=== PATIENT | female | born 1985 | race Hispanic/Latino ===

== ENCOUNTER 2018-06-10 08:47 | Inpatient (IN) | payer MEDICARE, MEDICAID ==
[2018-06-10] MEDS ORDERED: ADRENALIN ONE (09:06)
[2018-06-10] MEDS ORDERED: CALCIUM CHLORIDE IV ONE (09:06)
[2018-06-10 09:51] LABS: Mean Corpuscular HGB Conc 31 % (30-34); Mean Corpuscular Volume 100 fl (79-97); Platelet Count 226 K/mm3 (140-440); Red Blood Count 4.41 M/mm3 (3.65-5.03); Red Cell Distribution Width 19.9 % (13.2-15.2)
[2018-06-10 09:57] LABS: Hemoglobin 13.5 gm/dl (10.1-14.3)
[2018-06-10 10:04] LABS: Alanine Aminotransferase 26 units/L (7-56); Albumin 3.1 g/dL (3.9-5); BUN/Creatinine Ratio 18; Blood Urea Nitrogen 39 mg/dL (7-17); Hemolysis Index 47
[2018-06-10] MEDS ORDERED: NACL 0.9% 1000 ML 1,000 ML IV ONE ×3 (10:04→17:10)
[2018-06-10 10:06] LABS: Calcium 12.4 mg/dL (8.4-10.2)
[2018-06-10 10:08] LABS: INR 2.2 (0.87-1.13)
--- NOTE | 2018-06-10 10:09 | XRay Report ---
AP CHEST: HISTORY: Endotracheal tube placement No comparison. The endotracheal tube terminates 3.6 cm superior to the joaquina. A nasogastric tube is followed to the proximal stomach. Severe cardiomegaly and pulmonary edema is identified. Small pleural effusions are suspected. No pneumothorax. IMPRESSION: Adequate placement of the endotracheal tube. Moderate to severe CHF is suspected.
[2018-06-10] MEDS ORDERED: NACL 0.9% 1000 ML IV ONE (10:11)
[2018-06-10] MEDS ORDERED: VANCOMYCIN 1,000 MG in NACL 0.9% 500 ML 500 ML IV ONE (10:11)
[2018-06-10] MEDS ORDERED: LASIX IV ONE (10:17)
[2018-06-10 10:29] LABS: Basophils % (Manual) 0 % (0.0-1.8); Eosinophils % (Manual) 0 % (0.0-4.3); Total Cells Counted 100
[2018-06-10 10:30] LABS: Anisocytosis 1+; Platelet Estimate Consistent w Auto
--- NOTE | 2018-06-10 10:51 | Cat Scan Report ---
CT HEAD WITHOUT CONTRAST: HISTORY: Altered mental status. TECHNIQUE: Sequential 2.5mm CT images. COMPARISON: none. FINDINGS: Cerebral Parenchyma: There appears to be mild diffuse sulcal effacement throughout the cerebral hemispheres. The basal cisterns appear to be compressed and poorly defined. The sanchez-white interface is identified but appears mildly blurred. These findings could be related to diffuse cerebral edema. This may represent a diffuse anoxic injury. Cerebellum: Within normal limits. Brainstem: Within normal limits. Ventricles: Normal. Sella: Normal. Extra-axial spaces: Normal. Basal Cisterns: Compressed. Intracranial Hemorrhage: None. Midline Shift: None. Calvarium: Normal. Sinuses: Normal. Mastoid Air Cells: Normal. Visualized Orbits: Normal. IMPRESSION: Findings concerning for diffuse anoxic injury. Please correlate with the clinical presentation of the patient and consider further imaging with MRI.
--- NOTE | 2018-06-10 10:53 | Cat Scan Report ---
CT CHEST WITHOUT CONTRAST: HISTORY: Cardiac arrest. COMPARISON: none. TECHNIQUE: Helical CT in 1.25mm intervals without IV contrast. Sagittal and coronal reformatted images. FINDINGS: Thyroid gland: Normal. Tracheobronchial tree: Within normal limits. An endotracheal tube is in position. Esophagus: Within normal limits. A nasogastric tube is in position. Heart: There is severe cardiomegaly. Pericardium: Normal. Mediastinum: Normal. Lung Freitas: There are large areas of consolidation throughout the left upper lobe and bilateral lower lobes. It is unclear if this represents atelectasis or infiltrate. No obvious lung mass. Pleural Spaces: Small left pleural effusion. No pneumothorax. Musculoskeletal: Normal. IMPRESSION: Severe cardiomegaly. Large areas of consolidation throughout both lungs concerning for pneumonia, aspiration or possibly atelectasis. Small left pleural effusion.
[2018-06-10] MEDS ORDERED: VANCOMYCIN 2,000 MG in NACL 0.9% 500 ML 500 ML IV ONE (11:00)
[2018-06-10] MEDS ORDERED: MAXIPIME/NS 2 GM/100 ML 2 GM/100 ML BAG IV SCH ×2 (11:00→20:00)
[2018-06-10] MEDS ORDERED: MAXIPIME/NS 2 GM/100 ML 2 GM/100 ML BAG IV ONE (11:35)
--- NOTE | 2018-06-10 11:42 | Emergency Department Report ---
ED General Adult HPI - General Chief complaint: Cardiac Arrest/CPR Stated complaint: CARDIAC ARREST Time Seen by Provider: 06/10/18 09:21 Source: family, EMS Mode of arrival: Stretcher Limitations: Other - History of Present Illness Initial comments: Patient presents to the emergency department via EMS for cardiac arrest. Per EMS upon arrival the patient was in asystole and was given multiple rounds of epinephrine and chest compressions when V. tach was appreciated on the monitor and a shock was requested. The patient was shocked at 200 J and given 150 mg amiodarone and arrives to the ED with a pulse. Per the patient's mother the patient has been ill for the last 2 days and there are multiple sick contacts in the home with influenza. Mom states the patient has a pneumonia and influenza shots. The patient does have a history of Down syndrome and had to open-heart surgeries at 3 or 4 years old for correction of a VSD and a valve. Mom states that she was getting ready to bring the patient to the hospital because she was not feeling well when she noticed that she was not responding and turning blue. -: Sudden Severity scale (0 -10): 0 Improves with: none Worsens with: none Associated Symptoms: denies other symptoms Treatments Prior to Arrival: none - Related Data Home Medications Medication Instructions Recorded Confirmed Last Taken Furosemide 40 mg PO DAILY 06/10/18 06/10/18 Unknown Potassium Chloride 10 meq PO DAILY 06/10/18 06/10/18 Unknown Sildenafil 20 mg PO TID 06/10/18 06/10/18 Unknown Allergies Allergy/AdvReac Type Severity Reaction Status Date / Time No Known Allergies Allergy Unverified 06/10/18 08:58 ED Review of Systems ROS: Stated complaint: CARDIAC ARREST Other details as noted in HPI Comment: Unobtainable due to pts medical conditions ED Past Medical Hx - Past Medical History Previous Medical History?: Yes Additional medical history: Pulmonary hypertension, Down Syndrome - Surgical History Additional Surgical History: Unknown - Social History Smoking Status: Unknown if ever smoked - Medications Home Medications: Home Medications Medication Instructions Recorded Confirmed Last Taken Type Furosemide 40 mg PO DAILY 06/10/18 06/10/18 Unknown History Potassium Chloride 10 meq PO DAILY 06/10/18 06/10/18 Unknown History Sildenafil 20 mg PO TID 06/10/18 06/10/18 Unknown History ED Physical Exam - General Limitations: Other (patient intubated) General appearance: obtunded - Head Head exam: Present: atraumatic, normocephalic - Eye Eye exam: Present: normal appearance, PERRL. Absent: scleral icterus - ENT ENT exam: Present: mucous membranes dry - Neck Neck exam: Present: normal inspection - Respiratory Respiratory exam: Present: rales. Absent: wheezes - Cardiovascular Cardiovascular Exam: Present: normal rhythm, tachycardia - GI/Abdominal GI/Abdominal exam: Present: soft. Absent: distended - Extremities Exam Extremities exam: Present: pedal edema - Neurological Exam Neurological exam: Present: other (GCS of 3) - Psychiatric Psychiatric exam: Present: other (not able to assess due to the patient's condition) - Skin Skin exam: Present: dry, intact, normal color. Absent: rash ED Course Vital Signs 06/10/18 06/10/18 06/10/18 08:50 09:17 09:36 Temperature 97 F L Pulse Rate 70 97 H Respiratory 20 20 Rate Blood Pressure Blood Pressure 151/58 [Left] O2 Sat by Pulse 96 98 Oximetry 06/10/18 06/10/18 06/10/18 10:08 10:47 11:00 Temperature Pulse Rate 116 H 121 H 123 H Respiratory 20 20 20 Rate Blood Pressure Blood Pressure 91/44 88/49 86/50 [Left] O2 Sat by Pulse 95 94 94 Oximetry 06/10/18 06/10/18 06/10/18 11:18 12:00 12:45 Temperature Pulse Rate 125 H 127 H 129 H Respiratory 20 20 Rate Blood Pressure 97/44 Blood Pressure 98/50 56/22 [Left] O2 Sat by Pulse 90 95 94 Oximetry - Central Line Placement Right IJ Consent Obtained: emergent situation Time Out Performed: Yes Patient Placed on Monitor/Pulse Ox: Yes Prep: mask, gown, gloves Central Line Prep: Chlorhexidine scrub Local Anesthesia Used: Lidocaine 1% Amount of Anesthesia Used (mls): 5 Ultrasound Used for Placement: Yes Central Line Lumen Inserted: triple Central Line Position: good blood return, all ports aspirated, flus, sutured in place with 2-0 Dressing Applied: Tegaderm Post Procedure X-Ray: tip of catheter in good p Patient Tolerated Procedure: well Complications: none - Intubation Time Out Performed: No Laryngoscope: fiberoptic video scope Size: 3 ET Tube Size: 7.5 Tube Secured Depth (cm): 22 Tube Secured Location: lips Tube Placement Confirmation: visualized tube passing t, equal breath sounds bilat, no breath sounds over epi, confirmation by capnometr Patient Tolerated Procedure: well Intubation Complications: none ED Medical Decision Making - Lab Data Result diagrams: 06/10/18 09:15 06/10/18 09:15 Lab Results 06/10/18 06/10/18 06/10/18 Range/Units 08:58 09:15 09:15 WBC 45.0 H* (4.5-11.0) K/mm3 RBC 4.41 (3.65-5.03) M/mm3 Hgb 13.5 (10.1-14.3) gm/dl Hct 44.0 H (30.3-42.9) % MCV 100 H (79-97) fl MCH 31 (28-32) pg MCHC 31 (30-34) % RDW 19.9 H (13.2-15.2) % Plt Count 226 (140-440) K/mm3 Add Manual Diff Complete Total Counted 100 Seg Neutrophils % Knitted Cloth Examiner Seg Neuts % (Manual) 92.0 H (40.0-70.0) % Band Neutrophils % 0 % Lymphocytes % (Manual) 6.0 L (13.4-35.0) % Reactive Lymphs % (Man) 0 % Monocytes % (Manual) 2.0 (0.0-7.3) % Eosinophils % (Manual) 0 (0.0-4.3) % Basophils % (Manual) 0 (0.0-1.8) % Metamyelocytes % 0 % Myelocytes % 0 % Promyelocytes % 0 % Blast Cells % 0 % Nucleated RBC % Not Reportable Seg Neutrophils # Man 41.4 H (1.8-7.7) K/mm3 Band Neutrophils # 0.0 K/mm3 Lymphocytes # (Manual) 2.7 (1.2-5.4) K/mm3 Abs React Lymphs (Man) 0.0 K/mm3 Monocytes # (Manual) 0.9 H (0.0-0.8) K/mm3 Eosinophils # (Manual) 0.0 (0.0-0.4) K/mm3 Basophils # (Manual) 0.0 (0.0-0.1) K/mm3 Metamyelocytes # 0.0 K/mm3 Myelocytes # 0.0 K/mm3 Promyelocytes # 0.0 K/mm3 Blast Cells # 0.0 K/mm3 WBC Morphology Not Reportable Hypersegmented Neuts Not Reportable Hyposegmented Neuts Not Reportable Hypogranular Neuts Not Reportable Smudge Cells Not Reportable Toxic Granulation Not Reportable Toxic Vacuolation Not Reportable Dohle Bodies Not Reportable Pelger-Huet Anomaly Not Reportable Nisha Rods Not Reportable Platelet Estimate Consistent w auto Clumped Platelets Not Reportable Plt Clumps, EDTA Not Reportable Large Platelets Not Reportable Giant Platelets Not Reportable Platelet Satelliting Not Reportable Plt Morphology Comment Not Reportable RBC Morphology Not Reportable Dimorphic RBCs Not Reportable Polychromasia Not Reportable Hypochromasia Not Reportable Poikilocytosis Not Reportable Anisocytosis 1+ Microcytosis Not Reportable Macrocytosis Not Reportable Spherocytes Not Reportable Pappenheimer Bodies Not Reportable Sickle Cells Not Reportable Target Cells Not Reportable Tear Drop Cells Not Reportable Ovalocytes Not Reportable Helmet Cells Not Reportable Fox-Grayridge Bodies Not Reportable [place] Rings Not Reportable [place] Cells Not Reportable Bite Cells Not Reportable Crenated Cell Not Reportable Elliptocytes Not Reportable Acanthocytes (Spur) Not Reportable Rouleaux Not Reportable Hemoglobin C Crystals Not Reportable Schistocytes Not Reportable Malaria parasites Not Reportable Jaskaran Bodies Not Reportable Hem Pathologist Commnt No PT 25.9 H (12.2-14.9) Sec. INR 2.20 H (0.87-1.13) APTT 32.0 (24.2-36.6) Sec. POC ABG pH (7.35-7.45) POC ABG pCO2 (35-45) POC ABG pO2 (80-105) POC ABG HCO3 POC ABG Total CO2 POC ABG O2 Sat POC ABG Base Excess FiO2 % Sodium (137-145) mmol/L Potassium (3.6-5.0) mmol/L Chloride (98-107) mmol/L Carbon Dioxide (22-30) mmol/L Anion Gap mmol/L BUN (7-17) mg/dL Creatinine (0.7-1.2) mg/dL Estimated GFR ml/min BUN/Creatinine Ratio % Glucose (65-100) mg/dL POC Glucose 223 H (70-105) Lactic Acid (0.7-2.0) mmol/L Calcium (8.4-10.2) mg/dL Total Bilirubin (0.1-1.2) mg/dL AST (5-40) units/L ALT (7-56) units/L Alkaline Phosphatase (35-129) units/L Troponin T (0.00-0.029) ng/mL NT-Pro-B Natriuret Pep (0-450) pg/mL Total Protein (6.3-8.2) g/dL Albumin (3.9-5) g/dL Albumin/Globulin Ratio % Influenza A (Rapid) (Negative) Influenza B (Rapid) (Negative) 06/10/18 06/10/18 06/10/18 Range/Units 09:15 09:15 09:39 WBC (4.5-11.0) K/mm3 RBC (3.65-5.03) M/mm3 Hgb (10.1-14.3) gm/dl Hct (30.3-42.9) % MCV (79-97) fl MCH (28-32) pg MCHC (30-34) % RDW (13.2-15.2) % Plt Count (140-440) K/mm3 Add Manual Diff Total Counted Seg Neutrophils % Seg Neuts % (Manual) (40.0-70.0) % Band Neutrophils % % Lymphocytes % (Manual) (13.4-35.0) % Reactive Lymphs % (Man) % Monocytes % (Manual) (0.0-7.3) % Eosinophils % (Manual) (0.0-4.3) % Basophils % (Manual) (0.0-1.8) % Metamyelocytes % % Myelocytes % % Promyelocytes % % Blast Cells % % Nucleated RBC % Seg Neutrophils # Man (1.8-7.7) K/mm3 Band Neutrophils # K/mm3 Lymphocytes # (Manual) (1.2-5.4) K/mm3 Abs React Lymphs (Man) K/mm3 Monocytes # (Manual) (0.0-0.8) K/mm3 Eosinophils # (Manual) (0.0-0.4) K/mm3 Basophils # (Manual) (0.0-0.1) K/mm3 Metamyelocytes # K/mm3 Myelocytes # K/mm3 Promyelocytes # K/mm3 Blast Cells # K/mm3 WBC Morphology Hypersegmented Neuts Hyposegmented Neuts Hypogranular Neuts Smudge Cells Toxic Granulation Toxic Vacuolation Dohle Bodies Pelger-Huet Anomaly Nisha Rods Platelet Estimate Clumped Platelets Plt Clumps, EDTA Large Platelets Giant Platelets Platelet Satelliting Plt Morphology Comment RBC Morphology Dimorphic RBCs Polychromasia Hypochromasia Poikilocytosis Anisocytosis Microcytosis Macrocytosis Spherocytes Pappenheimer Bodies Sickle Cells Target Cells Tear Drop Cells Ovalocytes Helmet Cells Fox-Grayridge Bodies [place] Rings Walker Cells Bite Cells Crenated Cell Elliptocytes Acanthocytes (Spur) Rouleaux Hemoglobin C Crystals Schistocytes Malaria parasites Jaskaran Bodies Hem Pathologist Commnt PT (12.2-14.9) Sec. INR (0.87-1.13) APTT (24.2-36.6) Sec. POC ABG pH (7.35-7.45) POC ABG pCO2 (35-45) POC ABG pO2 (80-105) POC ABG HCO3 POC ABG Total CO2 POC ABG O2 Sat POC ABG Base Excess FiO2 % Sodium 138 (137-145) mmol/L Potassium 4.9 (3.6-5.0) mmol/L Chloride 93.5 L (98-107) mmol/L Carbon Dioxide 16 L (22-30) mmol/L Anion Gap 33 mmol/L BUN 39 H (7-17) mg/dL Creatinine 2.2 H (0.7-1.2) mg/dL Estimated GFR 26 ml/min BUN/Creatinine Ratio 18 % Glucose 215 H (65-100) mg/dL POC Glucose (70-105) Lactic Acid (0.7-2.0) mmol/L Calcium 12.4 H* (8.4-10.2) mg/dL Total Bilirubin 0.80 (0.1-1.2) mg/dL AST 46 H (5-40) units/L ALT 26 (7-56) units/L Alkaline Phosphatase 139 H (35-129) units/L Troponin T < 0.010 < 0.010 (0.00-0.029) ng/mL NT-Pro-B Natriuret Pep 42786 H (0-450) pg/mL Total Protein 7.2 (6.3-8.2) g/dL Albumin 3.1 L (3.9-5) g/dL Albumin/Globulin Ratio 0.8 % Influenza A (Rapid) Negative (Negative) Influenza B (Rapid) Negative (Negative) 06/10/18 06/10/18 Range/Units 09:54 10:16 WBC (4.5-11.0) K/mm3 RBC (3.65-5.03) M/mm3 Hgb (10.1-14.3) gm/dl Hct (30.3-42.9) % MCV (79-97) fl MCH (28-32) pg MCHC (30-34) % RDW (13.2-15.2) % Plt Count (140-440) K/mm3 Add Manual Diff Total Counted Seg Neutrophils % Seg Neuts % (Manual) (40.0-70.0) % Band Neutrophils % % Lymphocytes % (Manual) (13.4-35.0) % Reactive Lymphs % (Man) % Monocytes % (Manual) (0.0-7.3) % Eosinophils % (Manual) (0.0-4.3) % Basophils % (Manual) (0.0-1.8) % Metamyelocytes % % Myelocytes % % Promyelocytes % % Blast Cells % % Nucleated RBC % Seg Neutrophils # Man (1.8-7.7) K/mm3 Band Neutrophils # K/mm3 Lymphocytes # (Manual) (1.2-5.4) K/mm3 Abs React Lymphs (Man) K/mm3 Monocytes # (Manual) (0.0-0.8) K/mm3 Eosinophils # (Manual) (0.0-0.4) K/mm3 Basophils # (Manual) (0.0-0.1) K/mm3 Metamyelocytes # K/mm3 Myelocytes # K/mm3 Promyelocytes # K/mm3 Blast Cells # K/mm3 WBC Morphology Hypersegmented Neuts Hyposegmented Neuts Hypogranular Neuts Smudge Cells Toxic Granulation Toxic Vacuolation Dohle Bodies Pelger-Huet Anomaly Nisha Rods Platelet Estimate Clumped Platelets Plt Clumps, EDTA Large Platelets Giant Platelets Platelet Satelliting Plt Morphology Comment RBC Morphology Dimorphic RBCs Polychromasia Hypochromasia Poikilocytosis Anisocytosis Microcytosis Macrocytosis Spherocytes Pappenheimer Bodies Sickle Cells Target Cells Tear Drop Cells Ovalocytes Helmet Cells Fox-Grayridge Bodies [place] Rings Walker Cells Bite Cells Crenated Cell Elliptocytes Acanthocytes (Spur) Rouleaux Hemoglobin C Crystals Schistocytes Malaria parasites Jaskaran Bodies Hem Pathologist Commnt PT (12.2-14.9) Sec. INR (0.87-1.13) APTT (24.2-36.6) Sec. POC ABG pH 6.898 L (7.35-7.45) POC ABG pCO2 91.5 H (35-45) POC ABG pO2 90 (80-105) POC ABG HCO3 17.8 POC ABG Total CO2 21 POC ABG O2 Sat 87 POC ABG Base Excess -15 FiO2 100 % Sodium (137-145) mmol/L Potassium (3.6-5.0) mmol/L Chloride (98-107) mmol/L Carbon Dioxide (22-30) mmol/L Anion Gap mmol/L BUN (7-17) mg/dL Creatinine (0.7-1.2) mg/dL Estimated GFR ml/min BUN/Creatinine Ratio % Glucose (65-100) mg/dL POC Glucose (70-105) Lactic Acid 12.10 H* (0.7-2.0) mmol/L Calcium (8.4-10.2) mg/dL Total Bilirubin (0.1-1.2) mg/dL AST (5-40) units/L ALT (7-56) units/L Alkaline Phosphatase (35-129) units/L Troponin T (0.00-0.029) ng/mL NT-Pro-B Natriuret Pep (0-450) pg/mL Total Protein (6.3-8.2) g/dL Albumin (3.9-5) g/dL Albumin/Globulin Ratio % Influenza A (Rapid) (Negative) Influenza B (Rapid) (Negative) - Radiology Data Radiology results: report reviewed - Medical Decision Making Upon patient's arrival the patient has been intubated by EMS and has a pulse It was noticed that the patient's O2 sats were low with the ET tube done in the field and at this time it was decided to reintubate the patient The ET tubes balloon was deflated and there was significant amount of blood and fluid in the airway Vigorous suctioning was done and a Jairon was used for intubation During intubation the patient lost her pulse and ACLS protocols follow There was return of spontaneous circulation please see code sheet Patient was given bicarbonate and will doses of epinephrine Discussed and updated patient's condition with her mother and sister The patient became hypotensive even after IV fluids and central line was placed for pressors if needed IV pressors started Discussed with mom that the patient likely went into cardiac arrest secondary to respiratory issues Critical Care Time: Yes Critical care time in (mins) excluding proc time.: 45 Critical care attestation.: If time is entered above; I have spent that time in minutes in the direct care of this critically ill patient, excluding procedure time. ED Disposition Clinical Impression: Respiratory arrest, Sepsis, Pneumonia, Pulmonary edema, Renal failure Disposition: DC-[id number] OP ADMIT IP TO THIS HOSP Is pt being admited?: Yes Does the pt Need Aspirin: No Condition: Critical
[2018-06-10] MEDS ORDERED: PROVENTIL IH PRN (11:58)
[2018-06-10] MEDS ORDERED: SODIUM CHLORIDE FLUSH SYRINGE 10 ML IV PRN (11:58)
--- NOTE | 2018-06-10 11:58 | History and Physical Report ---
History of Present Illness Chief complaint: Unresponsive History of present illness: 32 YO Female with Down Syndrome, Pulmonary HTN, CAD, VSD S/P Repair, Obesity presents to ED for evaluation. Pt found unresponsive by her family today. EMS notified and upon arrival the patient was found to be in Asystolic Arrest. Pt treated IAW ACLS protocol for 8-10 minutes with eventual return of perfusing rhythm. Pt transported to [facility] for further care and evaluation. Pt seen and evaluated in ED and again experienced cardiac arrest. Pt treated IAW ACLS protocol with return of perfusing rhythm. Pt found to have Septic Shock, Acute Respiratory Failure, Acute Renal Failure, and Multiple Organ System Failure. Pt found to have poor prognosis. Pt condition discussed in detail with patient mother. Pt mother acknowledges understanding poor prognosis and requests aggressive therapy. Pt mother made aware that due to patient being in extremis- the patient may decompensate with/without aggressive therapy. Pt mother acknowledges understanding. Pt admitted to ICU and initiated on IV pressor support. Pt also initiated on sepsis protocol. Pulmonary team consulted in ED. Past History Past Medical History: CAD, other (Down Syndrome, Pulmonary HTN, Obesity) Past Surgical History: Other (VSD Repair) Social history: single, lives with family. denies: smoking, alcohol abuse, prescription drug abuse Family history: no significant family history (reviewed) Medications and Allergies Allergies Allergy/AdvReac Type Severity Reaction Status Date / Time No Known Allergies Allergy Unverified 06/10/18 08:58 Home Medications Medication Instructions Recorded Confirmed Last Taken Type Furosemide 40 mg PO DAILY 06/10/18 06/10/18 Unknown History Potassium Chloride 10 meq PO DAILY 06/10/18 06/10/18 Unknown History Sildenafil 20 mg PO TID 06/10/18 06/10/18 Unknown History Active Meds: Active Medications Cefepime HCl (Maxipime/Ns 2 Gm/100 Ml) 2 gm in 100 mls @ 200 mls/hr IV Q8HR [facility]; Protocol Last Admin: 06/10/18 11:36 Dose: 200 mls/hr Documented by: Vancomycin HCl 2,000 mg/ (Sodium Chloride) 540 mls @ 250 mls/hr IV ONCE ONE Stop: 06/10/18 13:09 Review of Systems ROS unobtainable: due to endotracheal tube Exam - Constitutional Vitals: Temp Pulse Resp BP Pulse Ox 97 F L 125 H 20 97/44 90 06/10/18 09:36 06/10/18 11:18 06/10/18 10:08 06/10/18 11:18 06/10/18 11:18 General appearance: Present: severe distress - EENT Eyes: Present: miosis - Neck Neck: Present: supple, normal ROM - Respiratory Respiratory effort: labored Respiratory: bilateral: diminished, rhonchi - Cardiovascular Rhythm: other (tachycardic, hypotensive) Heart Sounds: Present: S1 & S2. Absent: rub, click - Extremities Extremities: abnormal Extremity abnormal: edema Peripheral Pulses: abnormal (capillary refill greater than 3.5 seconds) - Abdominal General gastrointestinal: Present: soft, non-tender, non-distended, normal bowel sounds Female genitourinary: Present: normal - Integumentary Integumentary: Present: clear, dry, clammy - Musculoskeletal Musculoskeletal: generalized weakness - Psychiatric Psychiatric: no appropriate mood/affect, no intact judgment & insight, no memory intact - Neurologic Neurologic: moves all extremities, no gait normal Results - Labs CBC & Chem 7: 06/10/18 09:15 06/10/18 09:15 Labs: Abnormal lab results 06/10/18 06/10/18 06/10/18 Range/Units 08:58 09:15 09:15 WBC 45.0 H* (4.5-11.0) K/mm3 Hct 44.0 H (30.3-42.9) % MCV 100 H (79-97) fl RDW 19.9 H (13.2-15.2) % Seg Neuts % (Manual) 92.0 H (40.0-70.0) % Lymphocytes % (Manual) 6.0 L (13.4-35.0) % Seg Neutrophils # Man 41.4 H (1.8-7.7) K/mm3 Monocytes # (Manual) 0.9 H (0.0-0.8) K/mm3 PT 25.9 H (12.2-14.9) Sec. INR 2.20 H (0.87-1.13) POC ABG pH (7.35-7.45) POC ABG pCO2 (35-45) Chloride (98-107) mmol/L Carbon Dioxide (22-30) mmol/L BUN (7-17) mg/dL Creatinine (0.7-1.2) mg/dL Glucose (65-100) mg/dL POC Glucose 223 H (70-105) Lactic Acid (0.7-2.0) mmol/L Calcium (8.4-10.2) mg/dL AST (5-40) units/L Alkaline Phosphatase (35-129) units/L NT-Pro-B Natriuret Pep (0-450) pg/mL Albumin (3.9-5) g/dL 06/10/18 06/10/18 06/10/18 Range/Units 09:15 09:54 10:16 WBC (4.5-11.0) K/mm3 Hct (30.3-42.9) % MCV (79-97) fl RDW (13.2-15.2) % Seg Neuts % (Manual) (40.0-70.0) % Lymphocytes % (Manual) (13.4-35.0) % Seg Neutrophils # Man (1.8-7.7) K/mm3 Monocytes # (Manual) (0.0-0.8) K/mm3 PT (12.2-14.9) Sec. INR (0.87-1.13) POC ABG pH 6.898 L (7.35-7.45) POC ABG pCO2 91.5 H (35-45) Chloride 93.5 L (98-107) mmol/L Carbon Dioxide 16 L (22-30) mmol/L BUN 39 H (7-17) mg/dL Creatinine 2.2 H (0.7-1.2) mg/dL Glucose 215 H (65-100) mg/dL POC Glucose (70-105) Lactic Acid 12.10 H* (0.7-2.0) mmol/L Calcium 12.4 H* (8.4-10.2) mg/dL AST 46 H (5-40) units/L Alkaline Phosphatase 139 H (35-129) units/L NT-Pro-B Natriuret Pep 37570 H (0-450) pg/mL Albumin 3.1 L (3.9-5) g/dL Assessment and Plan - Patient Problems (1) Severe sepsis Current Visit: Yes Status: Acute Plan to address problem: Sepsis Protocol: IV antibiotic therapy, IVF resuscitation, serial lactic acid, monitor uop q shift, cbc, cmp, influenza swab, chest x ray, blood cultures. The high probability of a clinically significant, sudden or life threatening deterioration of the [Cardiac, pulmonary, renal, neuro] system(s) required my full and direct attention, intervention and personal management. The aggregate critical care time was [65] minutes. This time is in addition to time spent performing reported procedures but includes the following: [x] Data Review and interpretation [x] Patient assessment and monitoring of vital signs [x] Documentation [x] Medication orders and management (2) Cardiac arrest Current Visit: Yes Status: Acute Plan to address problem: S/P ACLS Protocol, telemetry, supportive care, Full code, Echo, bnp,cardiology consulted in ED. (3) Respiratory failure Current Visit: Yes Status: Acute Qualifiers: Chronicity: acute Respiratory failure complication: hypoxia Qualified Code(s): J96.01 - Acute respiratory failure with hypoxia Plan to address problem: Pt intubated, on vent support. wean vent as tolerated, daily sbt, daily abg, chest x ray, (4) Renal failure Current Visit: Yes Status: Acute Qualifiers: Acute renal failure type: with acute tubular necrosis Plan to address problem: IVF resuscitation, monitor uop q shift, monitor serum creatnine, (5) Cardiac arrest Current Visit: Yes Status: Acute Plan to address problem: S/P ACLS protocol, suspect anoxic brain injury. Pt is unstable at this time. will consider repeat CT head if/when patient becomes medically stable. (6) DVT prophylaxis Current Visit: Yes Status: Acute Plan to address problem: SCD to BLE while in bed.
[2018-06-10] MEDS ORDERED: LEVOPHED DRIP 4 MG/NS 250 ML 4 MG/250 ML BAG IV ONE ×3 (12:40→17:35)
[2018-06-10] MEDS: LEVOPHED DRIP 4 MG/NS 250 ML 4 MG/250 ML BAG IV SCH ×5 (12:45→23:52)
[2018-06-10] MEDS ORDERED: ASPIRIN PR SCH (13:00)
--- NOTE | 2018-06-10 13:08 | XRay Report ---
AP CHEST: HISTORY: Central line placement A right IJ venous catheter has been inserted which terminates near the cavoatrial junction. No pneumothorax. The remainder of the examination is unchanged since earlier today at 0931 hours. IMPRESSION: Right IJ central line placement.
[2018-06-10] MEDS ORDERED: SODIUM BICARBONATE IV ONE (14:00)
[2018-06-10] MEDS ORDERED: ASPIRIN PR ONE (14:09)
[2018-06-10] MEDS: SODIUM BICARBONATE 150 MEQ in D5W 1,000 ML IV SCH ×2 (14:22→21:44)
[2018-06-10] MEDS: Vasostrict 20 UNIT in NACL 0.9% 100 ML IV SCH ×2 (14:26→20:58)
[2018-06-10 15:01] LABS: Bilirubin,Urine NEG (Negative); Blood,Urine LG (Negative); Color,Urine Amber (Yellow); HCG Qualitative,Urine Negative (Negative); Mucus,Urine FEW /HPF; RBC,Urine > 182.0 /HPF (0.0-6.0); Urobilinogen,Urine < 2.0 mg/dL (<2.0)
[2018-06-10 15:07] LABS: Amphetamine Screen,Urine PRESUMPTIVE NEGATIVE; Benzodiazepines Screen,Urine PRESUMPTIVE NEGATIVE; Cannabinoid Screen,Urine PRESUMPTIVE NEGATIVE; Cocaine Screen,Urine PRESUMPTIVE NEGATIVE; Methadone Screen,Urine PRESUMPTIVE NEGATIVE; Opiate Screen,Urine PRESUMPTIVE NEGATIVE
[2018-06-10] MEDS ORDERED: NACL 0.9% 1000 ML 1,000 ML ONE ×2 (15:48→16:59)
--- NOTE | 2018-06-10 16:30 | Consultation ---
History of Present Illness Consult date: 06/10/18 Requesting physician: GARCIA MELO Reason for consult: hypoxemia, other (out of hospital asystole) History of present illness: 32 y/o obese female, hx of Down Syndrome and severe heart disease with JOSH, admitted through ED as out of hospital arrest. Per report patient was asystole for about 8-10 minutes. Then had Vfib and required shock and pulse was returned. Intubated and in field and brought to [facility]. Coded again in the ED but ROSC happened after one round of CPR. Currently not on sedation. Maxed on Levophed with mother and sister at bedside. Per mother, just moved here from [place] and has not established care with any physician. She was seeing a school coordinator, handle turner and one other specialist in [place]. Per mother patient has been fine. She has never been intubated outside of her surgeries as an infant. She also suffers from JOSH but mother does not know settings of her machine. Past History Past Medical History: other (Downs, VSD status post repair, pulmonary hypertension, obesity, cardiomegaly,CHF) Past Surgical History: Other (surgeries as listed below) Social history: no significant social history Family history: no significant family history Medications and Allergies Allergies Allergy/AdvReac Type Severity Reaction Status Date / Time No Known Allergies Allergy Unverified 06/10/18 08:58 Home Medications Medication Instructions Recorded Confirmed Last Taken Type Furosemide 40 mg PO DAILY 06/10/18 06/10/18 Unknown History Potassium Chloride 10 meq PO DAILY 06/10/18 06/10/18 Unknown History Sildenafil 20 mg PO TID 06/10/18 06/10/18 Unknown History Active Meds: Active Medications Albuterol (Proventil) 2.5 mg IH Q3HRT PRN PRN Reason: Shortness Of Breath Aspirin (Aspirin) 300 mg LA QDAY GIL Last Admin: 06/10/18 14:26 Dose: 300 mg Documented by: Famotidine (Pepcid) 10 mg IV BID GIL Norepinephrine (Levophed Drip 4 Mg/Ns 250 Ml) 4 mg in 250 mls @ 7.5 mls/hr IV TITR GIL; Protocol Last Admin: 06/10/18 15:21 Dose: 30 mcg/min, 112.5 mls/hr Documented by: Vasopressin 20 unit/ Sodium (Chloride) 101 mls @ 9.09 mls/hr IV TITR GIL; Protocol Last Admin: 06/10/18 14:26 Dose: 0.03 units/min, 9.09 mls/hr Documented by: Sodium Bicarbonate 150 meq/ (Dextrose) 1,150 mls @ 150 mls/hr IV DIRECT GIL Last Admin: 06/10/18 14:22 Dose: 150 mls/hr Documented by: Cefepime HCl (Maxipime/Ns 2 Gm/100 Ml) 2 gm in 100 mls @ 200 mls/hr IV Q8H GIL; Protocol Sodium Chloride (Nacl 0.9% 1000 Ml) 1,000 mls @ 999 mls/hr IV BOLUS ONE Stop: 06/10/18 16:51 Last Admin: 06/10/18 16:05 Dose: 999 mls/hr Documented by: Sodium Chloride (Sodium Chloride Flush Syringe 10 Ml) 10 ml IV BID GIL Sodium Chloride (Sodium Chloride Flush Syringe 10 Ml) 10 ml IV PRN PRN PRN Reason: LINE FLUSH Review of Systems ROS unobtainable: due to endotracheal tube, due to mental status Physical Examination Vital signs: Vital Signs Pulse Resp Pulse Ox 70 20 96 06/10/18 08:50 06/10/18 08:50 06/10/18 08:50 General appearance: appears uncomfortable, other (not responsive) ENT: other (orally intubated and sedated.) Neck: other (extremely large in circumference) Effort: mildly labored Ascultation: Bilateral: rales, rhonchi Cardiovascular: other (tachycardia) Results - Laboratory Findings CBC and BMP: 06/10/18 09:15 06/10/18 09:15 ABG POC ABG pH 6.898 (7.35-7.45) L 06/10/18 09:54 POC ABG pCO2 91.5 (35-45) H 06/10/18 09:54 POC ABG pO2 90 (80-105) 06/10/18 09:54 POC ABG HCO3 17.8 06/10/18 09:54 POC ABG Total CO2 21 06/10/18 09:54 POC ABG O2 Sat 87 06/10/18 09:54 PT/INR, D-dimer PT 25.9 Sec. (12.2-14.9) H 06/10/18 09:15 INR 2.20 (0.87-1.13) H 06/10/18 09:15 Abnormal lab findings: Abnormal Labs 06/10/18 06/10/18 06/10/18 08:58 09:15 09:15 WBC 45.0 H* Hct 44.0 H MCV 100 H RDW 19.9 H Seg Neuts % (Manual) 92.0 H Lymphocytes % (Manual) 6.0 L Seg Neutrophils # Man 41.4 H Monocytes # (Manual) 0.9 H PT 25.9 H INR 2.20 H POC ABG pH POC ABG pCO2 Chloride Carbon Dioxide BUN Creatinine Glucose POC Glucose 223 H Lactic Acid Calcium AST Alkaline Phosphatase NT-Pro-B Natriuret Pep Albumin Urine WBC (Auto) 06/10/18 06/10/18 06/10/18 09:15 09:54 10:16 WBC Hct MCV RDW Seg Neuts % (Manual) Lymphocytes % (Manual) Seg Neutrophils # Man Monocytes # (Manual) PT INR POC ABG pH 6.898 L POC ABG pCO2 91.5 H Chloride 93.5 L Carbon Dioxide 16 L BUN 39 H Creatinine 2.2 H Glucose 215 H POC Glucose Lactic Acid 12.10 H* Calcium 12.4 H* AST 46 H Alkaline Phosphatase 139 H NT-Pro-B Natriuret Pep 46969 H Albumin 3.1 L Urine WBC (Auto) 06/10/18 06/10/18 06/10/18 11:42 14:36 14:38 WBC Hct MCV RDW Seg Neuts % (Manual) Lymphocytes % (Manual) Seg Neutrophils # Man Monocytes # (Manual) PT INR POC ABG pH POC ABG pCO2 Chloride Carbon Dioxide BUN Creatinine Glucose POC Glucose Lactic Acid 7.70 H* 6.70 H* Calcium AST Alkaline Phosphatase NT-Pro-B Natriuret Pep Albumin Urine WBC (Auto) 77.0 H - Diagnostic Findings Chest x-ray: image reviewed (severe cardiomegaly, possibly left upper lobe airspace disease) Assessment and Plan 32 y/o female with out of hospital cardiac arrest, asystole, with prolong down time Long discussion at bedside with mother and sister. Attempted to explain how sick the patient is in regards to multisystem organ failure (Lungs, Heart, Kidney and possibly brain). Explained to mother that patient is very sick and that the next 24 hours would be very crucial. Her pH on arrival was less than 7. She is currently not sedated and on mechanical ventilation. Her BP is very low and is not responsive to max doses of levophed. Will do the following 1. Bicarb pushes now and start on continuous infusion 2. Add vasopressin therapy, next would be héctor then epi if needed 3. Repeat ABG, if oxygenation becomes worse, would need more PEEP therapy 4. Cardiovascular collapse from worsening heart disease, infection or respiratory issues. At this point, difficult to state which is the cause, however patient is not responding to appropriate therapy 5. Hold sedation 6. Agree with broad spectrum abx therapy for now Overall prognosis is very guarded to poor given prolonged downtime with no adequate circulation. Patient is very unstable and could have cardiac arrest again very soon CCT 31 minutes.
[2018-06-10] MEDS ORDERED: NACL 0.9% 500 ML 500 ML IV ONE (19:19)
[2018-06-10] MEDS ORDERED: NACL 0.9% 500 ML 500 ML ONE (19:27)
[2018-06-10] MEDS ORDERED: SODIUM CHLORIDE FLUSH SYRINGE 10 ML IV SCH (22:00)
[2018-06-10] MEDS ORDERED: PEPCID IV SCH ×2 (22:00)
[2018-06-10] MEDS ORDERED: VERSED ONE (22:15)
[2018-06-10] MEDS ORDERED: ATIVAN ONE (22:23)
[2018-06-10] MEDS ORDERED: ATIVAN IV PRN (22:26)
[2018-06-10 23:47] VITALS: BP 85/49
[2018-06-11] MEDS ORDERED: NACL 0.9% 1000 ML 1,000 ML ONE (01:33)
[2018-06-11] MEDS ORDERED: NACL 0.9% 1000 ML 1,000 ML IV ONE (01:36)
[2018-06-11] MEDS ORDERED: NEO-SYNEPHRINE 100 MG in NACL 0.9% 90 ML IV SCH (03:00)
[2018-06-11 03:06] LABS: Hematocrit 42.9 % (30.3-42.9); Hemoglobin 13.6 gm/dl (10.1-14.3); Mean Corpuscular HGB Conc 32 % (30-34); Mean Corpuscular Volume 97 fl (79-97); Platelet Count 202 K/mm3 (140-440); Red Blood Count 4.45 M/mm3 (3.65-5.03); Red Cell Distribution Width 19.5 % (13.2-15.2)
[2018-06-11 03:46] LABS: Albumin 2.1 g/dL (3.9-5); Calcium 8.2 mg/dL (8.4-10.2)
[2018-06-11 03:54] LABS: Band Neutrophils # (Manual) 16.7 K/mm3; Basophils % (Manual) 0 % (0.0-1.8); Eosinophils % (Manual) 0 % (0.0-4.3); Monocytes % (Manual) 0 % (0.0-7.3); Promyelocytes # (Manual) 0.3 K/mm3; Total Cells Counted 100
[2018-06-11 03:57] LABS: Anisocytosis 1+; Burr Cells 2+; Helmet Cells Few; Large Platelets Few; Ovalocytes 1+; Poikilocytosis 1+
--- NOTE | 2018-06-11 04:18 | XRay Report ---
FINAL REPORT PROCEDURE: XR CHEST 1V AP TECHNIQUE: Chest radiograph anteroposterior view. CPT 39949 HISTORY: ETT PLACEMENT COMPARISON: No prior studies are available for comparison. FINDINGS: Heart: Normal. Mediastinum/Vessels: Normal. Lungs/Pleural space: Opacities identified in both lungs consistent with diffuse infiltrative process. Mild right effusion. No pneumothorax. Bony thorax: No acute osseous abnormality. Life support devices: The endotracheal tube ends 2 centimeters above the joaquina. A nasogastric tube e nds below the hemidiaphragms. Right central catheter ends in the SVC. IMPRESSION: Bilateral diffuse infiltrative process in the lungs. Mild right effusion is suspected. Tubes and line s are properly positioned..
--- NOTE | 2018-06-11 06:16 | Event Note ---
Date: 06/11/18 NOTE: Code blue x2 had been called on the patient and she was successfully resuscitated. However, after further discussion with the family members, they decided to make the patient DO NOT RESUSCITATE. Patient was later observed to have a flat line on her quality assurance monitor final at about 3.23 AM on 06/11/2018. On examination: -Pupils fixed and dilated -No chest excursion -No breath or heart sounds on auscultation Patient was pronounced by me at 3:23 AM on 06/11/2018. Disposition: Transfer to the [facility] [place]
--- NOTE | 2018-06-11 12:57 | Death Summary ---
Summary - Providers Consults: 06/10/18 12:03 Consult to Cardiology [CONS] Routine Consulting Provider: SUZI GIBBS Reason For Exam: cardiac arrest 06/10/18 12:10 Consult to Physician [CONS] Stat Comment: Office notified @ 12:13- [facility] Consulting Provider: JONATHAN SCHWARTZ Physician Instructions: Reason For Exam: s/p cardiac arrest;resp failure;hypoxia Attending: EUGENIO RYAN - summary Date of admission: 06/10/18 11:58 Date of : 06/11/18 Procedures/treatments rendered: 32 YO Female with Down Syndrome, Pulmonary HTN, CAD, VSD S/P Repair, Obesity presents to ED for evaluation. Pt found unresponsive by her family today. EMS notified and upon arrival the patient was found to be in Asystolic Arrest. Pt treated IAW ACLS protocol for 8-10 minutes with eventual return of perfusing rhythm. Pt transported to [facility] for further care and evaluation. Pt seen and evaluated in ED and again experienced cardiac arrest. Pt treated IAW ACLS protocol with return of perfusing rhythm. Pt found to have Septic Shock, Acute Respiratory Failure, Acute Renal Failure, and Multiple Organ System Failure. Pt found to have poor prognosis. Pt condition discussed in detail with patient mother. Pt mother acknowledges understanding poor prognosis and requests aggressive therapy. Pt mother made aware that due to patient being in extremis- the patient may decompensate with/without aggressive therapy. Pt mother acknowledges understanding. Pt admitted to ICU and initiated on IV pressor support. Pt also initiated on sepsis protocol. Pulmonary team consulted in ED. jPt convalesced poorly during hospital course. Pt condition deteriorated, and patient was made DNR. Pt underwent Asystolic arrest and was pronounced at 0323 hrs. - Final diagnosis (1) Severe sepsis Note: Final diagnosis: (2) Cardiac arrest Note: Final diagnosis: (3) Respiratory failure Qualifiers: Chronicity: acute Respiratory failure complication: hypoxia Qualified Code(s): J96.01 - Acute respiratory failure with hypoxia Note: Final diagnosis: (4) Renal failure Qualifiers: Acute renal failure type: with acute tubular necrosis Note: Final diagnosis: (5) Cardiac arrest Note: Final diagnosis: (6) DVT prophylaxis Note: Final diagnosis:
== END 2018-06-11 04:52 | DRG 871 ==
LOC: ED 08:47 → CC1 11:58
PROVIDERS: ADMIT Internal Medicine; ATTEND Internal Medicine
PROC: 02HV33Z Insertion of Infusion Device into Superior Vena Cava, Percutaneous Approach (ICD-10-PCS; principal; 2018-06-10)
PROC: B548ZZA Ultrasonography of Superior Vena Cava, Guidance (ICD-10-PCS; 2018-06-10)
PROC: 5A1935Z Respiratory Ventilation, Less than 24 Consecutive Hours (ICD-10-PCS; 2018-06-10)
PROC: 0BH17EZ Insertion of Endotracheal Airway into Trachea, Via Natural or Artificial Opening (ICD-10-PCS; 2018-06-10)
PROC: 4A033R1 Measurement of Arterial Saturation, Peripheral, Percutaneous Approach (ICD-10-PCS; 2018-06-10)
DX: A41.9 Sepsis, unspecified organism (principal); J96.01 Acute respiratory failure with hypoxia; N17.0 Acute kidney failure with tubular necrosis; R65.21 Severe sepsis with septic shock; Z68.41 Body mass index [BMI] 40.0-44.9, adult; I46.9 Cardiac arrest, cause unspecified; I25.10 Atherosclerotic heart disease of native coronary artery without angina pectoris; E66.9 Obesity, unspecified; G47.33 Obstructive sleep apnea (adult) (pediatric); I50.9 Heart failure, unspecified; Z66 Do not resuscitate; Q90.9 Down syndrome, unspecified
CPT/HCPCS: 36415; 36600; 70450; 71045; 71250; 80053; 80307; 81001; 81025; 82140; 82803; 82962; 83880; 84484; 85007; 85025; 85610; 85730; 87040; 87070; 87076; 87205; 87400; 93005; 93010; 94002; 94003; G0378; J0171; J0692; J1940; J2060; J2250; J2370; J3370; J7030; J7040; J7070